=== PATIENT | female | born 2000 | race Hispanic/Latino ===

== ENCOUNTER → 2024-08-18 13:24 | Outpatient (REF) | payer OTHER, SELFPAY | LOC: HWRAD 13:24 | PROVIDERS: ATTENDING PHYSICIAN Obstetrics & Gynecology Gynecology; FAMILY PHYSICIAN Student in an Organized Health Care Education/Training Program | DX: N93.9 Abnormal uterine and vaginal bleeding, unspecified (principal) | CPT/HCPCS: 76830; 76856 ==